=== PATIENT | female | born 1935 | race Caucasian/White ===

== ENCOUNTER 2021-01-18 13:53 | Emergency (ER) | payer MEDICARE ==
[~2021-01-18] VITALS: Ht 154.9 cm; Wt 67.0 kg
[2021-01-18 16:09] LABS: HEMATOCRIT 36.5 % (37.0-47.0); HEMOGLOBIN 12.7 g/dl (12.0-16.0); IMMATURE GRANULOCYTES 0.4 % (0.0-5.0); MEAN CELL VOLUME 97.9 fL CALC (80.0-100.0); MEAN CORPUSCULAR HGB CONC 34.8 g/dL CAL (32.0-36.0); NEUT# 8.25 thou/uL (2.00-7.15); RED BLOOD COUNT 3.73 mill/uL (4.20-5.60); RED CELL DISTRI WIDTH 11.4 % (11.5-15.5)
[2021-01-18 16:10] LABS: URINE BILIRUBIN - DIPSTICK NEGATIVE (NEGATIVE); URINE BLOOD DIPSTICK SMALL (NEGATIVE); URINE COLOR YELLOW; URINE GLUCOSE - DIPSTICK NEGATIVE (NEGATIVE); URINE KETONE NEGATIVE (NEGATIVE); URINE LEUK ESTERASE NEGATIVE (NEGATIVE); URINE PH 6.5 (4.5-8.0); URINE PROTEIN - DIPSTICK NEGATIVE (NEG-TRACE); URINE UROBILINOGEN - DIPSTICK 0.2 E.U./dL (0.2)
[2021-01-18 16:12] LABS: URINE NITRITE - DIPSTICK NEGATIVE (Negative)
[2021-01-18 16:19] LABS: URINE SQUAMOUS EPITHELIAL CELL FEW EPI/hpf (0-FEW)
[2021-01-18] MEDS ORDERED: SPIRONOLACTONE25 MG PO (16:23)
[2021-01-18] MEDS ORDERED: OMEPRAZOLE20 MG PO (16:23)
[2021-01-18] MEDS ORDERED: NORVASC5 M1 PO (16:23)
[2021-01-18] MEDS ORDERED: TRAMADOL HCL50 MG PO (16:24)
[2021-01-18] MEDS ORDERED: LOSARTAN POTASS50 MG PO (16:24)
[2021-01-18 16:25] LABS: ALBUMIN 4.3 g/dL (3.2-5.0); ALKALINE PHOSPHATASE 87 u/l (38-126); ANION GAP 16 (6-22 (CALC)); BILIRUBIN, TOTAL 0.7 mg/dL (0.0-1.4); BUN 27 mg/dL (8-23); BUN/CREATININE RATIO 29 (12-20 (CALC)); CARBON DIOXIDE 20 mmol/l (22-30); CHLORIDE 96 mmol/l (95-108); CREATININE 0.9 mg/dL (0.5-1.0); GFR 59 ML/MIN (>=60 (CALC)); GFR FOR AFR.AMER. > 60 ML/MIN (>=60 (CALC)); POTASSIUM 4.1 mmol/l (3.5-5.1); SGOT/AST 32 u/l (9-36); SODIUM 129 mmol/l (137-146); TOTAL PROTEIN 7.6 g/dL (6.3-8.2)
[2021-01-18] MEDS ORDERED: ALPRAZOLAM0.25 MG PO (16:25)
[2021-01-18] MEDS ORDERED: HYDROXYZ HCL25 MG PO (16:26)
[2021-01-18] MEDS ORDERED: DOXYCYCL HYC100 MG PO (16:27)
[2021-01-18 16:37] LABS: MYOGLOBIN 61 ng/mL (0 - 62)
[2021-01-18 17:11] VITALS: BP 148/63
[2021-01-18] MEDS ORDERED: PROAIR HFA IN (17:14)
[2021-01-18] MEDS ORDERED: Levaquin PO (17:14)
[2021-01-18] MEDS ORDERED: MEDDOSEPAK PO (17:14)
== END 2021-01-18 17:42 | disposition home or self-care (01) ==
LOC: ED 13:53
PROVIDERS: Emergency Medicine
DX: J45.909 Unspecified asthma, uncomplicated (principal); N39.0 Urinary tract infection, site not specified; I10 Essential (primary) hypertension; K21.9 Gastro-esophageal reflux disease without esophagitis; Z20.822 Contact with and (suspected) exposure to COVID-19; R06.02 Shortness of breath